=== PATIENT | female | born 1995 | race African-American/Black ===

== ENCOUNTER 2017-03-18 07:13 | Emergency (ER) | payer MEDICAID ==
[~2017-03-18] VITALS: Ht 162.6 cm; Wt 63.5 kg
[2017-03-18 07:25] VITALS: BP 104/74
--- NOTE | 2017-03-18 07:39 | Emergency Room Report ---
History of Present Illness General Chief Complaint: Abdominal Pain Source: Patient Present Illness HPI Patient presents with complaints of diffuse abdominal discomfort She states that she had gas pain earlier this morning on the right upper quadrant that pain has relieved however she felt some epigastric discomfort Patient reports being constipated for the past 4 days she has seen a physician last week and was given a prescription However states that she was not able to fill the prescription as she had moved denies any vaginal bleeding or spotting denies any chest pain or short of breath Allergies: Coded Allergies: No Known Allergies (Unverified , 03/18/17) Patient History Past Medical History: see triage record Pertinent Family History: none Last Menstrual Period: 11/11/16 Now: Yes - 18 weeks : 4 Para: 0 Reviewed Nursing Documentation: PMH: Agreed, PSxH: Agreed Nursing Documentation-PMH Hx Cardiac Problems: No - Surgical Abortions Review of Systems All Other Systems: negative except mentioned in HPI Physical Exam Vital Signs Date Time Temp Pulse Resp B/P (MAP) Pulse Ox O2 Delivery O2 Flow Rate FiO2 03/18/17 07:17 97.3 80 18 119/71 100 Room Air Sp02 EP Interpretation: reviewed, normal General Appearance: well appearing, no apparent distress Head: normocephalic, atraumatic Eyes: bilateral eye PERRL, bilateral eye EOMI ENT: hearing grossly normal, normal pharynx, TMs + canals normal, uvula midline Neck: full range of motion, supple, no meningismus, no bony tend Respiratory: lungs clear, normal breath sounds, no rhonchi, no respiratory distress, no retraction, no accessory muscle use Cardiovascular #1: normal peripheral pulses, regular rate, rhythm, no edema, no gallop, no JVD, no murmur Gastrointestinal: normal bowel sounds, non tender, no guarding, no hernia, no rebound, other - abdomen is palpated Genitourinary: no CVA tenderness Musculoskeletal: normal inspection Neurologic: oriented x3, responsive, 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, motor strength/ tone normal, sensory intact Psychiatric: mood/affect normal Skin: normal color, no rash, warm/dry, palpation normal Lymphatic: normal inspection, no adenopathy Medical Decision Making Diagnostic Impression: Primary Impression: UTI (urinary tract infection) Additional Impression: Abdominal pain affecting ER Course With the patient's history and examination, multiple differentials considered, including but not limited to , ectopic , ovarian torsion, gastritis, cholecystitis, pancreatitis, appendicitis Patient is a Approximately 18 weeks from previous [employer] followup At this time the patient does not have any vaginal bleeding or with medical contraction Official ultrasound has not been obtained However bedside ultrasound was obtained which showed heart tone approximately 140 Intrauterine Patient is a urine sample showed a few white blood cells and leukocytes given the status will conservatively treat the patient for bladder infection At this time the patient is stable for close outpatient followup Labs Test 03/18/17 07:30 03/18/17 07:50 Urine Color Yellow Urine Appearance Clear Urine pH 6 (4.5-8.0) Urine Specific [place] 1.020 (1.005-1.035) Urine Protein Negative (NEGATIVE) Urine Glucose (UA) Negative (NEGATIVE) Urine Ketones Negative (NEGATIVE) Urine Occult Blood Negative (NEGATIVE) Urine Nitrite Negative (NEGATIVE) Urine Bilirubin Negative (NEGATIVE) Urine Urobilinogen 1 MG/DL (0.0-1.0) Urine Leukocyte Esterase 2+ (NEGATIVE) Urine RBC 0-2 /HPF (0 - 2) Urine WBC 5-10 /HPF (0 - 2) Urine Squamous Epithelial Cells Few /LPF (NONE/OCC) Urine Bacteria Few /HPF (NONE) Urine Mucus Few /LPF (NONE/OCC) White Blood Count 9.8 K/UL (4.8-10.8) Red Blood Count 3.68 M/UL (4.20-5.40) Hemoglobin 11.8 G/DL (12.0-16.0) Hematocrit 36.0 % (37.0-47.0) Mean Corpuscular Volume 98 FL (80-99) Mean Corpuscular Hemoglobin 32.2 PG (27.0-31.0) Mean Corpuscular Hemoglobin Concent 32.8 G/DL (32.0-36.0) Red Cell Distribution Width 11.3 % (11.6-14.8) Platelet Count 306 K/UL (150-450) Mean Platelet Volume 6.0 FL (6.5-10.1) Neutrophils (%) (Auto) 52.6 % (45.0-75.0) Lymphocytes (%) (Auto) 33.7 % (20.0-45.0) Monocytes (%) (Auto) 6.7 % (1.0-10.0) Eosinophils (%) (Auto) 6.1 % (0.0-3.0) Basophils (%) (Auto) 0.9 % (0.0-2.0) Sodium Level 137 mEQ/L (135-145) Potassium Level 3.8 mEQ/L (3.4-4.9) Chloride Level 100 mEQ/L (98-107) Carbon Dioxide Level 26 mEQ/L (20-30) Anion Gap 11 (5-15) Blood Urea Nitrogen 6 mg/dL (7-23) Creatinine 0.6 mg/dL (0.5-0.9) Estimat Glomerular Filtration Rate > 60 mL/min (>60) Glucose Level 83 mg/dL (74-106) Calcium Level 9.4 mg/dL (8.6-10.2) Total Bilirubin 0.5 mg/dL (0.0-1.2) Aspartate Amino Transf (AST/SGOT) 14 U/L (5-40) Alanine Aminotransferase (ALT/SGPT) 12 U/L (3-33) Alkaline Phosphatase 54 U/L (35-104) Total Protein 7.0 g/dL (6.6-8.7) Albumin 3.5 g/dL (3.5-5.2) Globulin 3.5 g/dL Albumin/Globulin Ratio 1.0 (1.0-2.7) Lipase 21 U/L (< 60) Last Vital Signs Date Time Temp Pulse Resp B/P (MAP) Pulse Ox O2 Delivery O2 Flow Rate FiO2 03/18/17 07:17 97.3 80 18 119/71 100 Room Air Status: improved Disposition: HOME, SELF-CARE Condition: Improved Scripts Docusate Sodium* (COLACE*) 100 Mg Capsule 100 MG ORAL TWICE A DAY, #12 CAP Prov: DEB WALKEROJero 03/18/17 Nitrofurantoin Monohyd/M-Cryst* (MACROBID 100 MG*) 100 Mg Capsule 100 MG ORAL EVERY 12 HOURS for 5 Days, CAP Prov: DEB WALKEROJero 03/18/17 Additional Instructions: Patient is provided with the discharge instructions notified to follow up with primary doctor in the next 2-3 days otherwise return to the er with any worsening symptoms. Please note that this report is being documented using [employer] technology. This can lead to erroneous entry secondary to incorrect interpretation by the dictating instrument. DEB WALKER D.O. Mar 18, 2017 07:39
[2017-03-18 07:48] LABS: APPEARANCE,URINE CLEAR; KETONES,URINE NEGATIVE (NEGATIVE); LEUKOCYTE ESTERASE ,URINE 2+ (NEGATIVE); NITRITE,URINE NEGATIVE (NEGATIVE); PH,URINE 6 (4.5-8.0); PROTEIN,URINE NEGATIVE (NEGATIVE); UROBILINOGEN,URINE 1 MG/DL (0.0-1.0)
[2017-03-18 07:55] LABS: BACTERIA,URINE FEW /HPF; MUCUS,URINE FEW /LPF (NONE/OCC); RBC,URINE 0-2 /HPF (0 - 2); SQUAMOUS EPITHELIAL CELL,UR FEW /LPF (NONE/OCC)
[2017-03-18 08:30] LABS: BASOPHILS % (AUTO) 0.9 % (0.0-2.0); EOSINOPHILS % (AUTO) 6.1 % (0.0-3.0); LYMPHOCYTES % (AUTO) 33.7 % (20.0-45.0); MEAN CORPUSCULAR HEMOGLOBIN 32.2 PG (27.0-31.0); MEAN CORPUSCULAR HGB CONC 32.8 G/DL (32.0-36.0); MEAN CORPUSCULAR VOLUME 98 FL (80-99); MONOCYTES % (AUTO) 6.7 % (1.0-10.0); NEUTROPHILS % (AUTO) 52.6 % (45.0-75.0); PLATELET COUNT 306 K/UL (150-450); RED BLOOD COUNT 3.68 M/UL (4.20-5.40); RED CELL DISTRIBUTION WIDTH 11.3 % (11.6-14.8); WHITE BLOOD COUNT 9.8 K/UL (4.8-10.8)
[2017-03-18 08:46] LABS: ALANINE AMINOTRANSFERASE 12 U/L (3-33); ANION GAP 11 (5-15); ASPARTATE AMINO TRANSFERASE 14 U/L (5-40); CALCIUM 9.4 mg/dL (8.6-10.2); CARBON DIOXIDE 26 mEQ/L (20-30); CHLORIDE 100 mEQ/L (98-107); CREATININE 0.6 mg/dL (0.5-0.9); GLOMERULAR FILTRATION RATE > 60 mL/min (>60); HEMOLYSIS 1; LIPASE 21 U/L (< 60); POTASSIUM 3.8 mEQ/L (3.4-4.9); SODIUM 137 mEQ/L (135-145)
[2017-03-18] MEDS ORDERED: COLACE100 MG ORAL (09:01)
[2017-03-18] MEDS ORDERED: NITROFURANTOIN100 M2 ORAL (09:01)
[2017-03-18 09:08] VITALS: BP 109/73
== END 2017-03-18 09:08 | disposition home or self-care (01) ==
LOC: EMR 07:51
DX: O23.42 Unspecified infection of urinary tract in pregnancy, second trimester (principal); Z3A.18 18 weeks gestation of pregnancy; R10.9 Unspecified abdominal pain; K59.00 Constipation, unspecified
CPT/HCPCS: 36415; 80053; 81003; 83690; 85025; 99284

== ENCOUNTER 2017-07-29 00:43 | Emergency (ER) | payer MEDICAID ==
[~2017-07-29] VITALS: Ht 162.6 cm; Wt 73.5 kg
[~2017-07-29 00:43] MED LIST: COLACE100 MG ORAL; NITROFURANTOIN100 M2 ORAL
[2017-07-29 01:00] VITALS: BP 119/57
--- NOTE | 2017-07-29 01:28 | Emergency Room Report ---
History of Present Illness General Chief Complaint: Earache Source: Patient, Medical Record Present Illness HPI Is a 21-year-old female who is 37 weeks . She presents with chief complaint of left ear fullness and unable to here from it. Onset for last few days. No nausea no vomiting. Try Debrox without much relief. Is that she got worse because of it. No congestion. Allergies: Coded Allergies: No Known Allergies (Unverified , 03/18/17) Patient History Past Medical History: see triage record, old chart reviewed Past Surgical History: none Pertinent Family History: none Last Menstrual Period: 11/15/16 Now: Yes - 37 weeks : 3 Para: 0 Immunizations: UTD Reviewed Nursing Documentation: PMH: Agreed, PSxH: Agreed Nursing Documentation-PMH Hx Cardiac Problems: No - Surgical Abortions Review of Systems Eye: Denies: eye pain, blurred vision ENT: Denies: ear pain, nose congestion, throat swelling Respiratory: Denies: cough, shortness of breath Cardiovascular: Denies: chest pain, palpitations Gastrointestinal: Denies: abdominal pain, diarrhea, nausea, vomiting Musculoskeletal: Denies: back pain, joint pain Skin: Denies: rash Neurological: Denies: headache, numbness Endocrine: Denies: increased thirst, increased urine Hematologic/Lymphatic: Denies: easy bruising All Other Systems: negative except mentioned in HPI Physical Exam Vital Signs Date Time Temp Pulse Resp B/P (MAP) Pulse Ox O2 Delivery O2 Flow Rate FiO2 07/29/17 00:58 98.6 98 15 119/57 97 Room Air vitals normal Sp02 EP Interpretation: reviewed, normal General Appearance: well appearing, no apparent distress, alert Head: normocephalic, atraumatic Eyes: bilateral eye PERRL, bilateral eye EOMI ENT: hearing grossly normal, normal pharynx, other - Bilateral ear impacted with wax Neck: full range of motion, supple, no meningismus Respiratory: chest non-tender, lungs clear, normal breath sounds Cardiovascular #1: regular rate, rhythm, no murmur Gastrointestinal: normal bowel sounds, non tender, no mass, no organomegaly, no bruit, non-distended Musculoskeletal: back normal, gait/station normal, normal range of motion Psychiatric: mood/affect normal Skin: warm/dry Procedures Additional Procedure Procedure Narrative Procedure: Cerumen disimpaction Indication: Cerumen impaction Description: I irrigated both ear canal with normal saline. Large amount of wax disimpacted. Patient felt better. No complication. Able to hear now. Medical Decision Making Diagnostic Impression: Primary Impression: Impacted cerumen of both ears ER Course Patient with cerumen impaction. Disimpacted without any difficulty. No perforation. No infection. Last Vital Signs Date Time Temp Pulse Resp B/P (MAP) Pulse Ox O2 Delivery O2 Flow Rate FiO2 07/29/17 00:58 98.6 98 15 119/57 97 Room Air Status: improved Disposition: HOME, SELF-CARE Condition: Stable Referrals: NON PHYSICIAN (PCP) Additional Instructions: followup with your Dr. in 7 days. Return if worse. LULY ROY M.D. Jul 29, 2017 01:28
[2017-07-29 01:30] VITALS: BP 119/57
== END 2017-07-29 01:30 | disposition home or self-care (01) ==
LOC: EMR 01:05
DX: O26.893 Other specified pregnancy related conditions, third trimester (principal); Z3A.37 37 weeks gestation of pregnancy; H61.23 Impacted cerumen, bilateral
CPT/HCPCS: 69209; 99283; Z7502; 69210

== ENCOUNTER 2019-03-02 13:38 | Emergency (ER) | payer MEDICAID ==
[~2019-03-02] VITALS: Ht 162.6 cm; Wt 68.0 kg
[2019-03-02 13:47] VITALS: BP 124/81
--- NOTE | 2019-03-02 13:57 | NUR ---
ED Nurse Note: Patient walked into ED from home c/o vaginal itchiness and spotting bright red, pink for 4 days. patient denies any vaginal discharge or dysuria. patient is alert awake x4 ambulatory steady gait, breathing unlabored and even.
--- NOTE | 2019-03-02 14:04 | NUR ---
ED Nurse Note: UA SENT TO LAB
--- NOTE | 2019-03-02 14:11 | Emergency Room Report ---
History of Present Illness General Chief Complaint: Female Urogenital Problems Source: Patient Present Illness HPI 23-year-old female with no symptom past medical history here complaining of few days of vaginal pruritus, discharge, and spotting. Patient reports that her last menstrual period was 2 weeks ago and regular. Reports that she was last sexually active a week ago. Without protection. Denies fever and chills, dysuria, urinary frequency, hematuria, nausea vomiting. Denies abdominal pain, chest pain, shortness of breath, palpitation, no other associated symptoms. Patient reports that she often wears tight clothing and gets sweaty due to being on her feet for long hours and is very prone to yeast infections. Has not taken medication for symptom relief. Allergies: Coded Allergies: No Known Allergies (Unverified , 03/18/17) Patient History Past Medical History: see triage record Past Surgical History: unable to obtain Pertinent Family History: none Last Menstrual Period: 02/24/2019 Now: No : 1 Para: 1 Immunizations: UTD Reviewed Nursing Documentation: PMH: Agreed; PSxH: Agreed Nursing Documentation-PMH Hx Cardiac Problems: No - Surgical Abortions Review of Systems All Other Systems: negative except mentioned in HPI Physical Exam Vital Signs Date Time Temp Pulse Resp B/P (MAP) Pulse Ox O2 Delivery O2 Flow Rate FiO2 03/02/19 13:47 98.4 91 18 124/81 (95) 99 Room Air Sp02 EP Interpretation: reviewed, normal General Appearance: no apparent distress, alert, GCS 15, non-toxic Head: normocephalic, atraumatic Eyes: bilateral eye normal inspection, bilateral eye PERRL ENT: hearing grossly normal, normal pharynx, no angioedema, normal voice Neck: full range of motion, supple/symm/no masses Respiratory: chest non-tender, lungs clear, normal breath sounds, no rhonchi, no retraction, no wheezing, speaking full sentences Cardiovascular #1: normal inspection, regular rate, rhythm, no murmur Gastrointestinal: normal inspection, soft Genitourinary: no CVA tenderness Musculoskeletal: back normal, gait/station normal, normal range of motion, non- tender Neurologic: normal inspection, alert, oriented x3 Psychiatric: judgement/insight normal, memory normal, mood/affect normal, no suicidal/homicidal ideation Skin: no rash Lymphatic: no adenopathy Medical Decision Making PA Attestation Diagnosis and treatment plans were reviewed and discussed with my supervising physician Dr. Wallis Diagnostic Impression: Primary Impression: Vaginitis Additional Impressions: Screening for STD (sexually transmitted disease) UTI (urinary tract infection) ER Course 23-year-old female with no symptom past medical history here complaining of few days of vaginal pruritus, discharge, and spotting. Patient reports that her last menstrual period was 2 weeks ago and regular. Reports that she was last sexually active a week ago. Without protection. Denies fever and chills, dysuria, urinary frequency, hematuria, nausea vomiting. Denies abdominal pain, chest pain, shortness of breath, palpitation, no other associated symptoms. Patient reports that she often wears tight clothing and gets sweaty due to being on her feet for long hours and is very prone to yeast infections. Has not taken medication for symptom relief. Ddx considered but are not limited to: UTI, pyonephritis, chlamydia, gonorrhea, yeast infectious Vital signs: are WNL, pt. is afebrile H&PE are most consistent with: Vaginitis secondary to yeast infection, screening for sexually transmitted diseases, UTI ORDERS: UA, urine test, GC and chlamydia, doxycycline, Diflucan, Lotrisone cream ED INTERVENTIONS: None required at this time. DISCHARGE: At this time pt. is stable for d/c to home. Will provide printed patient care instructions, and any necessary prescriptions. Care plan and follow up instructions have been discussed with the patient prior to discharge. Patient agrees to be prophylactically treated for possible chlamydia and gonorrhea infection before the results are back. Condom use advised. Last Vital Signs Date Time Temp Pulse Resp B/P (MAP) Pulse Ox O2 Delivery O2 Flow Rate FiO2 03/02/19 13:47 98.4 91 18 124/81 (95) 99 Room Air Disposition: HOME, SELF-CARE Condition: Stable Scripts Doxycycline Hyclate* (VIBRAMYCIN*) 100 Mg Capsule 100 MG ORAL EVERY 12 HOURS for 7 Days, #14 CAP 0 Refills Prov: Christine Fleming 03/02/19 Clotrimazole/Betamethasone Dip* (LOTRISONE CREAM*) 15 Gm Cream..g. 2 GM TP TWICE A DAY, #15 GM 0 Refills Prov: Christine Fleming 03/02/19 Fluconazole (FLUCONAZOLE) 150 Mg Tablet 150 MG ORAL ONCE for 1 Day, #1 TAB 0 Refills Prov: Christine Fleming 03/02/19 Patient Instructions: Chlamydia, Female, [id number], Vaginal Yeast Infection , Adult, Vaginitis Additional Instructions: Pending chlamydia and gonorrhea lab results patient agrees to start antibiotic treatment today before knowing the results. Christine Fleming Mar 02, 2019 14:11
[2019-03-02 14:18] LABS: APPEARANCE,URINE CLEAR; BILIRUBIN, URINE NEGATIVE (NEGATIVE); GLUCOSE, URINE (UA) NEGATIVE (NEGATIVE); KETONES,URINE NEGATIVE (NEGATIVE); LEUKOCYTE ESTERASE ,URINE 3+ (NEGATIVE); NITRITE,URINE NEGATIVE (NEGATIVE); PH,URINE 6 (4.5-8.0); PROTEIN,URINE NEGATIVE (NEGATIVE); UROBILINOGEN,URINE NORMAL MG/DL (0.0-1.0)
[2019-03-02 14:28] LABS: COLOR,URINE YELLOW
[2019-03-02] MEDS ORDERED: LOTRISONE CREAM15 GM TP (14:28)
[2019-03-02] MEDS ORDERED: FLUCONAZOLE150 MG ORAL (14:28)
[2019-03-02] MEDS ORDERED: VIBRAMYCIN100 MG ORAL (14:28)
[2019-03-02 14:38] VITALS: BP 124/81
--- NOTE | 2019-03-02 14:38 | NUR ---
ER DISCHARGE NOTE: Patient is cleared to be discharged per GARETH RAYMOND, pt is aox4, on room air, with stable vital signs. pt was given dc and prescription instructions, pt was able to verbalize understanding, pt id band removed without complications. pt is able to ambulate with steady gait. pt took all belongings.
== END 2019-03-02 14:38 | disposition home or self-care (01) ==
LOC: EMR 14:15
DX: N76.0 Acute vaginitis (principal); N39.0 Urinary tract infection, site not specified
CPT/HCPCS: 81001; 81025; 87086; 87491; 87590; 99283